=== PATIENT | male | born 1985 ===

== ENCOUNTER 2018-08-14 11:40 | Emergency (ER) | payer MEDICARE, OTHER ==
[2018-08-14 11:43] VITALS: BMI 38.8
--- NOTE | 2018-08-14 12:11 | C.PDOC ---
History Of Present Illness 33 y/o male with PMHx of Downs syndrome, presents to the ED with left upper extremity pain. Per brother at bedside, patient has been at a daycare facility, and has been unable to lift the left arm above shoulder since yesterday. Patient is still able to touch the right shoulder using left arm, and is able to rotate the wrist and elbow without issue. Denies use of blood thinners. No hx of similar symptoms in the past. Patient denies pain anywhere else. Time Seen by Provider: 08/14/18 11:58 Chief Complaint (Nursing): Upper Extremity Problem/Injury History Per: Patient, Family (brother) History/Exam Limitations: no limitations Onset/Duration Of Symptoms: Days Current Symptoms Are (Timing): Still Present Exacerbating Factor(s): Movement Past Medical History Reviewed: Historical Data, Nursing Documentation, Vital Signs Vital Signs: Last Vital Signs Temp 98.7 F 08/14/18 11:44 Pulse 74 08/14/18 11:44 Resp 18 08/14/18 11:44 BP 114/79 08/14/18 11:44 Pulse Ox 99 08/14/18 11:44 - Medical History Other PMH: Down syndrome Surgical History: Tonsillectomy Family History: States: No Known Family Hx - Social History Hx Alcohol Use: No Hx Substance Use: No - Immunization History Hx Tetanus Toxoid Vaccination: No Hx Influenza Vaccination: No Hx Pneumococcal Vaccination: No Review Of Systems Cardiovascular: Negative for: Chest Pain Respiratory: Negative for: Shortness of Breath Musculoskeletal: Positive for: Shoulder Pain, Arm Pain, Other (Unable to extend left arm past shoulder) Skin: Negative for: Rash, Lesions, Bruising Neurological: Negative for: Numbness, Other (tingling) Physical Exam - Physical Exam Appears: Non-toxic, No Acute Distress Skin: Warm, Dry Head: Normacephalic Eye(s): bilateral: Normal Inspection Oral Mucosa: Moist Neck: Normal ROM, Trachea Midline, No Midline Cervical Tenderness, No Paracervical Tenderness, Supple, Other (No meningeal signs- negative kernig's and brudzinskis) Chest: Symmetrical Cardiovascular: Rhythm Regular Respiratory: No Rales, No Rhonchi, No Wheezing Extremity: Normal ROM (with FROM of left elbow and wrist w/ out pain, unable to fully extend past shoulder secondary to pain), No Deformity, No Swelling, Other (Neurovascularly intact, no skin changes. No snuffbox tenderness or UCL pain. ) Pulses: Left Radial: Normal, Right Radial: Normal Neurological/Psych: Other (Awake, alert) ED Course And Treatment O2 Sat by Pulse Oximetry: 99 (RA) Pulse Ox Interpretation: Normal Medical Decision Making Medical Decision Makin33 year old male w/ hx of down syndrome p/w L sided shoulder pain. Will seek imaging. No recorded trauma. N/V intact. No neck pain or stiffness. No meningeal signs. Initial Plan: --Tylenol 320 mg PO --Left elbow x-ray --Left shoulder x-ray 1338 xrays unremarkable pain improved remains n/v intact no UCL like injury or pain. No snuffbox tenderness pt has tylenol and motrin at home per family Clear for d/c home w/ sling and f/u w/ ortho or PMD for reimaging if needed Disposition - Disposition Referrals: [facility] [Outside] Philippe Aiken MD [Staff Provider] - Disposition: HOME/ ROUTINE Disposition Time: 13:30 Condition: GOOD Additional Instructions: FOLLOW UP WITH YOUR PRIMARY CARE DOCTOR OR ORTHOPEDICS FOR POSSIBLE REPEAT IM AGES. Instructions: Muscle Strain Forms: [facility] ([place]an) - Clinical Impression Clinical Impression: Muscle strain - Scribe Statement The provider has reviewed the documentation as recorded by the Scribe (Margy Chavez) Provider Attestation: All medical record entries made by the Scribe were at my direction and personally dictated by me. I have reviewed the chart and agree that the record accurately reflects my personal performance of the history, physical exam, medical decision making, and the department course for this patient. I have also personally directed, reviewed, and agree with the discharge instructions and disposition.
[2018-08-14] MEDS ORDERED: Acetaminophen 160 mg/5 ml UD PO ONE (12:18)
--- NOTE | 2018-08-14 13:05 | RAD ---
PROCEDURE: Radiographs of the Left Shoulder HISTORY: pain COMPARISON: None available. FINDINGS: BONES: No acute displaced fracture. The distal clavicle and underlying ribs appear intact. JOINTS: No acute dislocation. SOFT TISSUES: Soft tissues appear unremarkable. No evidence of radiopaque foreign body. IMPRESSION: No acute displaced fracture or dislocation evident. If symptoms persist or if there is continued clinical concern, x-ray follow-up in 7-10 days should be considered.
--- NOTE | 2018-08-14 13:08 | RAD ---
PROCEDURE: Radiographs of the left elbow. HISTORY: pain COMPARISON: None available. FINDINGS: BONES: No acute displaced fracture. JOINTS: No dislocation. SOFT TISSUES: Unremarkable. No evidence of radiopaque foreign body. JOINT EFFUSION: No significant joint effusion. OTHER FINDINGS: None IMPRESSION: No acute displaced fracture, dislocation, or significant joint effusion identified. If symptoms persist, or if there is continued clinical concern, x-ray follow-up in 7-10 days should be considered.
[2018-08-14] MEDS ORDERED: Acetaminophen 160 mg/5 ml elixir (120 ml) ONE (13:25)
[2018-08-14 13:44] VITALS: BP 120/82; PULSE 69; TEMP 99.5
[2018-08-14 13:48] VITALS: O2SAT 99
[2018-08-14 14:07] VITALS: RESP 18
== END 2018-08-14 14:07 | disposition home or self-care (01) ==
LOC: C.ER 11:40
DX: S46.912A Strain of unspecified muscle, fascia and tendon at shoulder and upper arm level, left arm, initial encounter (principal); X58.XXXA Exposure to other specified factors, initial encounter